=== PATIENT | female | born 1980 | race Caucasian/White ===

== ENCOUNTER → 2016-08-20 | Outpatient (REF) | payer BC | LOC: M SFHCLERA 18:38 | PROVIDERS: ATTEND Physician Assistant | DX: J02.9 Acute pharyngitis, unspecified (principal) ==

== ENCOUNTER → 2019-04-20 | Outpatient (REF) | payer BC | LOC: M LAB REF 15:02 | PROVIDERS: ATTEND Physician Assistant | DX: R50.9 Fever, unspecified (principal); J06.9 Acute upper respiratory infection, unspecified; R05 Cough ==

== ENCOUNTER → 2020-03-14 | Outpatient (REF) | payer BC | LOC: M LAB REF 09:29 | PROVIDERS: ATTEND Physician Assistant | DX: N30.01 Acute cystitis with hematuria (principal) ==

== ENCOUNTER → 2021-02-11 | Outpatient (REF) | payer BC | LOC: M WUC 09:32 | PROVIDERS: ATTEND Physician Assistant | DX: J01.10 Acute frontal sinusitis, unspecified (principal) ==

== ENCOUNTER → 2021-08-27 | Outpatient (REF) | payer BC | LOC: M WUC 19:44 | PROVIDERS: ATTEND Physician Assistant | DX: J06.9 Acute upper respiratory infection, unspecified (principal) ==